=== PATIENT | male | born 1970 | race Caucasian/White ===

== ENCOUNTER 2018-03-16 13:30 | Observation (INO) | payer BC ==
[2018-03-16 14:24] LABS: Hematocrit 39 % (42-52); Mean Corpuscular HGB Conc 36 g/dl (31-36); Mean Corpuscular Hemoglobin 33 pg (27-31); Mean Corpuscular Volume 93 fL (80-94); Mean Platelet Volume 7.2 um3 (7.4-10.4); Platelet Count 439 10^3/ul (150-450); Red Blood Count 4.25 10^6/ul (4.00-5.40); Red Cell Distribution Width 13 % (10.5-15); White Blood Count 12.2 10^3/ul (3.5-10.8)
--- NOTE | 2018-03-16 14:46 | RAD ---
Indication: Sudden onset abdominal pain and nausea at lunch today. Subsequent substernal chest pain radiating to the LEFT neck and diaphoresis. History of hypertension. Comparison: No relevant prior exams available on the [facility] PACS for comparison. Technique: Upright AP 1433 hours Report: Clear lungs and pleural spaces. Negative for pneumothorax. The heart, pulmonary vasculature, and mediastinal contours are unremarkable. Unremarkable osseous structures and soft tissue contours. Epigastric surgical clips. Negative for free air beneath the diaphragm. IMPRESSION: No evidence for acute intrathoracic disease.
[2018-03-16 14:48] LABS: EGFR Non-African American 93.2 (>60)
[2018-03-16 14:55] LABS: ABS Basophils 0.1 10^3/ul (0-0.2); ABS Eosinophils 0 10^3/ul (0-0.6); ABS Lymphocytes 1.2 10^3/ul (1.0-4.8); ABS Monocytes 1.5 10^3/ul (0-0.8); ABS Neutrophils 9.4 10^3/ul (1.5-7.7)
[2018-03-16 14:56] LABS: Urine Appearance Clear; Urine Blood Negative (Negative); Urine Color Colorless; Urine Ketones Negative (Negative); Urine Protein Negative (Negative); Urine Specific Gravity 1.003 (1.010-1.030); Urine Urobilinogen Negative (Negative)
[2018-03-16 14:57] LABS: Monocytes % 12 % (0-7)
[2018-03-16] MEDS ORDERED: Nitroglycerin 2% OINT* 1 GM PAK TOPICAL ONE (15:12)
[2018-03-16] MEDS ORDERED: Acetaminophen TAB* 325 MG PO PRN (16:56)
[2018-03-16] MEDS ORDERED: Al Hydrox/Mg Hydrox/Simet LIQ* 30 ML UDC PO PRN (16:56)
[2018-03-16] MEDS ORDERED: Enoxaparin(*) 40 MG/0.4 ML SYR SUBCUT SCH (17:00)
--- NOTE | 2018-03-16 18:49 | ED ---
Holland Unger Angela, scribed for Wilton Oconnor MD on 03/16/18 at 1409 . HPI Chest Pain - HPI Summary HPI Summary: This pt is a 47 y/o male presenting to [facility] via EMS for abd pain and chest pain today. Pt reports he was at work when he suddenly began to have abd pain with nausea and "felt sick to his stomach" at approximately 10:30 today. He notes he left work early and drove home. On his way home pt developed mid sternal chest pain and felt "shaky." He states he has been drinking and eating well recently. Pt currently has lightheadedness and chest pain. He notes his nausea and abd pain have settled down now. EMS administered 4 baby aspirin en route. Pt was not given nitroglycerin. Denies recent fall or trauma. PMHx: HTN. Denies hx of seizures. Pt was on antihypertensive medications a while ago but stopped taking them. He has not seen his PCP in a couple of years. Pt admits to drinking beer every day for the past 8 years. - History of Current Complaint Chief Complaint: EDChestPainROMI Time Seen by Provider: 03/16/18 13:47 Hx Obtained From: Patient Onset/Duration: Started Hours Ago, Still Present Timing: Lasting Hours Current Severity: Mild Pain Intensity: 1 Pain Scale Used: 0-10 Numeric Chest Pain Location: Mid Sternal Chest Pain Radiates: No Character: Pressure/Squeezing - pressure Aggravating Factor(s): Nothing Alleviating Factor(s): Nothing Associated Signs and Symptoms: Positive: Chest Pain, Lightheadedness, Nausea, Abdominal Pain. Negative: Fever, Chills, Vomiting - Allergy/Home Medications Allergies/Adverse Reactions: Allergies Allergy/AdvReac Type Severity Reaction Status Date / Time Penicillins Allergy Unknown Verified 03/16/18 13:48 Reaction Details Home Medications: Home Medications NK [No Home Medications Reported] 03/16/18 [History Confirmed 03/16/18] PMH/Surg Hx/FS Hx/Imm Hx Endocrine/Hematology History: Denies: Hx Diabetes Cardiovascular History: Reports: Hx Hypertension Neurological History: Denies: Hx Seizures - Surgical History Surgery Procedure, Year, and Place: splenectomy. tonsillectomy Infectious Disease History: No Infectious Disease History: Denies: Traveled Outside the [place] in Last 30 Days - Family History Known Family History: Negative: Cardiac Disease, Diabetes - Social History Alcohol Use: Daily Alcohol Amount: 8 beers/day Substance Use Type: Reports: None Smoking Status (MU): Heavy Every Day Tobacco Smoker Review of Systems Negative: Fever, Chills Negative: Erythema Negative: Sore Throat Positive: Chest Pain Negative: Shortness Of Breath, Cough Positive: Abdominal Pain, Nausea. Negative: Vomiting Negative: dysuria, hematuria Negative: Myalgia, Edema Negative: Rash Neurological: Other - POS: lightheadedness. NEG: dizziness All Other Systems Reviewed And Are Negative: Yes Physical Exam - Summary Physical Exam Summary: Constitutional: Well-developed, Well-nourished, Alert. (-) Distressed Skin: Warm, Dry HENT: Normocephalic; Atraumatic Eyes: Conjunctiva normal Neck: Musculoskeletal ROM normal neck. (-) JVD, (-) Stridor, (-) Tracheal deviation Cardio: Rhythm regular, rate normal, Heart sounds normal; Intact distal pulses; The pedal pulses are 2+ and symmetric. Radial pulses are 2+ and symmetric. (-) Murmur Pulmonary/Chest wall: Effort normal. (-) Respiratory distress, (-) Wheezes, (-) Rales Abd: Soft, (-) Tenderness, (-) Distension, (-) Guarding, (-) Rebound Musculoskeletal: (-) Edema Lymph: (-) Cervical adenopathy Neuro: Alert, Oriented x3 Psych: Mood and affect Normal Triage Information Reviewed: Yes Vital Signs On Initial Exam: Initial Vitals Temp Pulse Resp BP Pulse Ox 98.9 F 93 16 167/101 96 03/16/18 13:35 03/16/18 13:35 03/16/18 13:35 03/16/18 13:35 03/16/18 13:35 Vital Signs Reviewed: Yes Diagnostics - Vital Signs Vital Signs Temp Pulse Resp BP Pulse Ox 03/16/18 13:44 94 21 96 03/16/18 13:35 98.9 F 94 24 167/101 96 - Laboratory Result Diagrams: 03/16/18 14:18 03/16/18 14:18 Lab Statement: Any lab studies that have been ordered have been reviewed, and results considered in the medical decision making process. - Radiology Chest XR Xray Interpretation: No Acute Changes - IMPRESSION: No evidence for acute intrathoracic disease. Dr. Oconnor has reviewed this radiology report. Radiology Interpretation Completed By: Radiologist - EKG 14:04 Cardiac Rate: NL - at 88 bpm EKG Rhythm: Sinus Rhythm EKG Interpretation: No STEMI. Re-Evaluation - Re-Evaluation First Eval Re-Evaluation Time: 16:03 Comment: I reviewed lab and XR results with pt. I discussed the plan for admission with the pt. He understands and agrees. Chest Pain Course/Dx - Course Assessment/Plan: Pt is a 47 y/o male, with hx of HTN not on medications, who presents with abd pain and chest pain today. Pt reports he was at work when he suddenly began to have abd pain with nausea and "felt sick to his stomach" at approximately 10:30 today. He notes he left work early and drove home. On his way home pt developed mid sternal chest pain and felt "shaky." He states he has been drinking and eating well recently. Pt currently has lightheadedness and chest pain. He notes his nausea and abd pain have settled down now. EMS administered 4 baby aspirin en route. Pt was not given nitroglycerin. Test results without any significant abnormalities except for WBC of 12.2, sodium of 129, chloride of 96, glucose of 174, CRP of 8.6. First troponin is 0.01 and second troponin is 0.00. Chest XR shows no evidence for acute intrathoracic disease. In the ED course the pt was given nitroglycerin ointment. I discussed pt care with Dr. Berger, hospitalist, who accepted the pt for admission. - Diagnoses Provider Diagnoses: Chest pain, unspecified, Uncontrolled hypertension - Provider Notifications Discussed Care Of Patient With: Nicole Berger Time Discussed With Above Provider: 15:50 Instructed by Provider To: Admit As Inpatient Discharge - Sign-Out/Discharge Documenting (check all that apply): Discharge/Admit/Transfer - Admit - Discharge Plan Condition: Stable Disposition: ADMITTED TO [facility] documentation as recorded by the Holland faustin Angela accurately reflects the service I personally performed and the decisions made by me, Wilton Oconnor MD.
[2018-03-16] MEDS ORDERED: Mouth Piece, Nicotine* 1 EACH CARTRIDGE INH PRN ×2 (20:25)
[2018-03-16] MEDS ORDERED: Nicotine Inhaler* 10 MG AMP INH PRN (20:25)
[2018-03-16] MEDS: Carvedilol TAB* 6.25 MG PO SCH (20:37)
--- NOTE | 2018-03-16 21:32 | HP ---
HISTORY AND PHYSICAL: DATE OF ADMISSION: 03/16/18 TIME OF ADMISSION: 4:45 p.m. PRIMARY CARE PHYSICIAN: Dr. Castillo. CHIEF COMPLAINT: Chest pain. HISTORY OF PRESENT ILLNESS: This is a 47-year-old man with a history of hypertension and anxiety, who presented to the emergency department with chest pain that began this morning. He is unsure at what time the chest pain began, but he went to work this morning and was feeling well; however, around 11 a.m., he became nauseous and decided to leave work because he was feeling so poorly. Then, on his drive home, he developed midsternal chest pain that did not radiate and when he got home, his called EMS. The chest pain resolved in the ambulance after he received aspirin and he is currently chest pain-free. Also associated with his chest pain while he was driving were arm tremors and some shortness of breath. This has never happened to him before; however, he does note history of anxiety attacks where he gets tremulous like this, but he has never developed chest pain with anxiety. PAST MEDICAL HISTORY: Hypertension that is currently untreated, anxiety that he also takes no medication for. HOME MEDICATIONS: None. SOCIAL HISTORY: He works in [employer]. He smokes 3 quarters of a pack per day since he was 23 years old and he drinks 8 beers per day. He has never undergone alcohol withdrawal when he has quit. His next of kin is his , Kelli. Her phone number is [phone]. REVIEW OF SYSTEMS: Denies recent weight changes, headaches, blurry vision, cough, cold, rhinorrhea, abdominal pain, weakness. PHYSICAL EXAMINATION GENERAL: Alert, well-appearing man, in no distress. VITAL SIGNS: Temperature 98.9, heart rate 94, respiratory rate 16, pulse ox 96 % on room air, blood pressure 167/101. HEENT: Pupils equal, round, reactive to light. No nystagmus. Oral mucosa is moist. No pharyngeal exudates or erythema. NECK: No JVP. No adenopathy. LUNGS: With scattered expiratory wheezes. CHEST: Regular rate and rhythm. No murmurs. PMI nondisplaced. ABDOMEN: Soft, nontender, nondistended. Pain is not reproduced on palpation. No CVA tenderness. EXTREMITIES: Strength 5/5. No edema. No rashes. No ulcers. DIAGNOSTIC STUDIES/LAB DATA: White blood cells 12.2, hemoglobin 14.0, platelets 439. Sodium 129, potassium 3.6, chloride 96, BUN 8, creatinine 0.88, glucose 174, lactic acid 1.5. Troponin 0.01. EKG: Normal sinus rhythm, normal axis, normal intervals. No ST or T wave changes. ASSESSMENT AND PLAN: This is a 47-year-old man with history of tobacco abuse and hypertension, presenting with chest pain that began this morning at rest. 1. Atypical chest pain. While Mr. Welsh pain is not typical, he has risk factors including untreated hypertension, tobacco abuse, and possibly diabetes given his elevated glucose on his BMP and glucosuria. So, he warrants an acute coronary syndrome rule out and a stress test in the morning. He needs 2 more troponins to be monitored on telemetry and he does not think he can complete an exercise stress test, so I am ordering a nuclear stress test. I will check lipids and an A1c for secondary prevention. 2. Hypertension. He reports that he was diagnosed with hypertension years ago , but he stopped taking medications. His blood pressures here suggest the need for antihypertensives given the concern for acute coronary syndrome. I am going to treat him with Coreg. 3. Hyperglycemia. Again, this is concerning for untreated diabetes. I am checking an A1c. 4. Hyponatremia. Likely secondary to alcohol use. 5. Alcohol abuse. He drinks 8 beers per day. His , however, says that he has quit several times in the past and has never undergone withdrawal and he is able to stop drinking without any issues. 6. Tobacco abuse. Nicotine patch, counseled on smoking cessation. 7. DVT prophylaxis. Lovenox subcutaneously. 8. Diet. Unrestricted diet. N.p.o. after midnight for nuclear stress test tomorrow. [id number]/[facility] #: [id number] JORDIN
[2018-03-17 08:04] VITALS: BP 151/93
--- NOTE | 2018-03-17 10:24 | RAD ---
HISTORY: chest pain COMPARISONS: None TECHNIQUE: A 1 day stress/rest myocardial perfusion study was performed, with exercise stress. The exercise portion was performed using the Sabas protocol, for a total METs of 10.1. The stress portion was monitored by Dr. Che. Gated SPECT imaging was performed, with CT-based attenuation correction DOSE: Stress: Technetium 99m tetrofosmin, 25.59 millicuries, injected at 9:25 AM on March 17, 2018 Rest: Technetium 99m tetrofosmin, 10.67 millicuries, injected at 6:35 AM on March 17, 2018 Pharmacologic agent: None FINDINGS: CARDIAC MONITORING: Peak heart rate of 1 60 bpm, 92% of predicted EF: 70% TID: 0.89 MOTION: Normal motion, with normal wall thickening. PERFUSION: There are no definite fixed or reversible perfusion defects. OTHER: None IMPRESSION: NORMAL EJECTION FRACTION. NO DEFINITE FIXED OR REVERSIBLE PERFUSION DEFECTS. ASSESSMENT: LOW RISK. Based on imaging criteria from ACC/AHA 2002. Guideline Update for the Management of Patient's with Chronic Stable Angina, table 23. Noninvasive Risk Stratification.
[2018-03-17] MEDS: Carvedilol TAB* 6.25 MG PO SCH (11:08)
--- NOTE | 2018-03-18 11:31 | DS ---
CC: Dr. Castillo * DISCHARGE SUMMARY: DATE OF ADMISSION: 03/16/18 DATE OF DISCHARGE: 03/17/18 PRIMARY CARE PROVIDER: Dr. Castillo. MY ATTENDING WHILE IN THE HOSPITAL: Dr. Malika José.* (DICTATED BY GEORGINA FARMER) PRIMARY DISCHARGE DIAGNOSES: 1. Chest pain. 2. Upper respiratory infection. 3. Hyponatremia. SECONDARY DISCHARGE DIAGNOSES: 1. Reactive airways disease. 2. Tobacco abuse. 3. Hypertension. 4. Anxiety. STUDIES DONE WHILE IN THE HOSPITAL: Chest x-ray from 03/16/18 shows no evidence of acute intrathoracic disease. EKG from 03/16/18 shows normal sinus rhythm with early repolarization in V2, V3, V4. No other significant ST segment abnormalities. No blocks or hypertrophy. No other abnormalities. Nuclear medicine scan from 03/16/18 read as normal ejection fraction. No deficits, fixed or reversible perfusion defects. MEDICATIONS AT DISCHARGE: 1. Tylenol 650 mg p.o. q. 4 hours as needed for pain. 2. Albuterol inhaler 1 puff inhalation q. 4 hours as needed. 3. Lisinopril 10 mg p.o. daily. HOSPITAL COURSE: This is a brief summary of the patient's presentation. For more details, please see the history and physical from Dr. Nicole Berger on 08/23. In brief, the patient is a 47-year-old male with past medical history significant for the above who presented because he was feeling nauseous and unwell and decided to drive home and while driving, developed some midsternal chest pain that did not radiate with associated some shortness of breath and arm tremors, which was similar to previous anxiety that he had had, but had never been associated with chest pain. The patient is a current smoker. The patient has previously been diagnosed with asthma. The patient had no other symptoms. The patient's chest pain had resolved by the time he arrived to the emergency department. The patient was admitted to the hospital for chest pain rule out. The patient had in the emergency department leukocytosis with white blood cell count of 12.2, sodium 129 and glucose of 174 and CRP of 8.6. The patient also had hemoglobin A1c of 4.9 and LDL cholesterol of 97. The patient had no acute events overnight. The patient underwent a cardiac stress test, which was read as above. The patient felt much better, had no shortness of breath. The patient had significant wheezes throughout his lung rodriguez on exam , although these were asymptomatic. The patient was anxious to be discharged and was stable to discharge to home on 03/17/18. PHYSICAL EXAMINATION ON THE DAY OF DISCHARGE: General: The patient is a 47- year- old male who appears stated age and sitting comfortably in the bed, in no acute distress. Vital Signs: At the time of discharge, temperature 98.5, pulse rate 68, respiratory rate 16, oxygen saturation 95% on room air, blood pressure 151/93. HEENT: Head normocephalic, atraumatic. Sclerae are anicteric. No conjunctival injection. Nasal mucosa moist. Oral mucosa moist. No oropharyngeal erythema, discharge, or exudate. Neck: Supple, nontender. No lymphadenopathy. No carotid bruit auscultated. No JVD. Cardiac: Regular rate and rhythm. No clicks, murmurs, gallops or rubs. Pulses are 2+ in bilateral dorsalis pedis, posterior tibialis and radial areas. Respiratory: Expiratory wheezes with prolonged expiratory phase throughout. No other adventitious lung sounds. Good air exchange bilaterally. Abdomen: Soft, nontender, nondistended. Bowel sounds present, normoactive in all 4 quadrants. No hepatosplenomegaly. No abdominal bruits auscultated. Genitourinary: No suprapubic or CVA tenderness. Skin: Clean, dry and intact. No rash. Neuro: Cranial nerves II through XII are intact. No focal deficits. Alert and oriented x3. Psychiatric: Pleasant and cooperative. DISCHARGE PLAN: The patient will be discharged to home. The patient is a current smoker. Smoking cessation and its effect on primary prevention of [place] was discussed with the patient and he had been contemplating of quitting smoking. I suggested this should be discussed with him at his followup with his primary care provider and the pros and cons of different pharmacologic aids for smoking cessation should be discussed. The patient will be started on albuterol rescue inhaler, which he should take for shortness of breath. The patient's wheezing, white blood cell count, and possibly his chest pain might all be related to an upper respiratory infection, for which the patient should use rescue inhaler as needed. The patient should follow up with his primary care provider within 1 week for a repeat CBC and BMP to assess for resolution of his leukocytosis and hyponatremia. The patient is asymptomatic, had no overt symptoms from his hyponatremia, this is likely due to his nausea and respiratory complaints causing SIADH. The patient could possibly be referred for formal PFTs to further elucidate his respiratory condition. The patient should follow up with his primary care provide within 1 week for general medical management. The patient should take lisinopril as prescribed. The patient should follow up with his blood pressure for the first several days of therapy. Discontinue medication for low blood pressures and take these readings to his primary care provider at followup. The patient should have heart- healthy diet without caffeine and should engage in activity as tolerated. TIME SPENT: Approximately 60 minutes was spent on this discharge, 30 of which was spent [id number] with the patient obtaining history and physical and discussing treatment plan. GEORGINA FARMER [id number]/[facility] #: [id number] JORDIN
== END 2018-03-17 11:56 | disposition home or self-care (01) ==
LOC: ED 13:30 → MEDTELE 16:56
PROVIDERS: ADMIT Internal Medicine; ATTEND Hospitalist
DX: R07.89 Other chest pain (principal); I10 Essential (primary) hypertension; R73.9 Hyperglycemia, unspecified; E87.1 Hypo-osmolality and hyponatremia; F10.10 Alcohol abuse, uncomplicated; R42 Dizziness and giddiness; F17.210 Nicotine dependence, cigarettes, uncomplicated
CPT/HCPCS: 36415; 71045; 78452; 80053; 80061; 81003; 83036; 83605; 83690; 84484; 85025; 85060; 86140; 93005; 99283; 99406; A9270-GY; A9502; G0378; J1650